=== PATIENT | male | born 1955 | race Caucasian/White ===

== ENCOUNTER 2017-04-18 14:44 | Inpatient (IN) | payer OTHER ==
[~2017-04-18] VITALS: Ht 177.8 cm; Wt 110.5 kg
[2017-04-21] MEDS ORDERED: TRAM50TA PO (09:00)
[2017-04-21] MEDS ORDERED: FISH1000 PO (09:00)
[2017-04-21] MEDS ORDERED: ATOR20TA15 PO (09:00)
[2017-04-21] MEDS ORDERED: SERT-129 PO (09:00)
[2017-04-21] MEDS ORDERED: OMEP20TA PO (09:00)
[2017-04-21] MEDS ORDERED: MELO-1 PO (09:00)
[2017-04-21] MEDS ORDERED: BUPR150T5 PO (09:00)
[2017-04-29] MEDS ORDERED: GENTAMICIN SULFATE 80 MG/2 ML VIAL ONE (10:53)
[2017-04-29] MEDS ORDERED: SODIUM CHLORIDE 0.9% IV SCH (11:00)
[2017-04-29] MEDS ORDERED: TRANEXAMIC ACID IV SCH (11:00)
[2017-04-29] MEDS ORDERED: CHLORHEXIDINE GLUCONATE 2 % 1 PACK (2 CLOTHS) TOPICAL PRN (11:15)
[2017-04-29] MEDS ORDERED: METOPROLOL TARTRATE 25 MG TAB PO PRN (11:15)
[2017-04-29] MEDS ORDERED: SODIUM CHLORID 0.9% 500 ML IV PRN (11:15)
[2017-04-29] MEDS ORDERED: POVIDONE IODINE 5% (ANTISEPSIS KIT) 4 APPLICATIONS EACH NARE PRN (11:15)
[2017-04-29] MEDS ORDERED: POVIDONE IODINE 7.5% SCRUB 118 ML BOTTLE TOPICAL SCH (11:15)
[2017-04-29] MEDS ORDERED: ceFAZolin 2 GM PREMIX 50 ML IV SCH (11:15)
[2017-04-29] MEDS ORDERED: LACTATED RINGER'S 1000 ML IV PRN (11:15)
[2017-04-29] MEDS ORDERED: INSULIN HUMAN REGULAR 1,000 UNITS/10 ML VIAL SQ PRN (11:15)
[2017-04-29] MEDS ORDERED: VANCOMYCIN 1000 MG/NS 250 ML (for <70 kg) IV SCH ×2 (11:15)
[2017-04-29] MEDS ORDERED: EXPAREL PERI-ARTICULAR INJECTION (TOTAL VOL. 60 ML) P-ARTICULR SCH ×2 (11:15)
[2017-04-29] MEDS ORDERED: ACETAMINOPHEN 1000 MG/100 ML 100 ML IV ONE (12:59)
[2017-04-29] MEDS ORDERED: FAMOTIDINE 20 MG/2 ML VIAL ONE (13:00)
[2017-04-29] MEDS ORDERED: LACTATED RINGER'S 1000 ML INJ 2,000 ML IV ONE (13:01)
[2017-04-29] MEDS ORDERED: ONDANSETRON HCL 4 MG/2 ML VIAL IV PUSH ONE (13:01)
[2017-04-29] MEDS ORDERED: PHENYLEPH/NS 1000 MCG/10 ML SYR IV ONE (13:01)
[2017-04-29] MEDS ORDERED: ePHEDrine/NS 25 MG/5 ML SYR IV ONE (13:01)
[2017-04-29] MEDS ORDERED: NEOSTIGMINE 3 MG/3 ML SYR IV ONE (13:01)
[2017-04-29] MEDS ORDERED: PROPOFOL 200 MG/20 ML AMP IV ONE (13:01)
[2017-04-29] MEDS ORDERED: HYDROmorphone HCL PF 2 MG/ML VIAL ONE (13:09)
[2017-04-29] MEDS ORDERED: MIDAZOLAM HCL 2 MG/2 ML VIAL ONE (13:12)
[2017-04-29] MEDS: LACTATED RINGER'S 1000 ML INJ 1,000 ML IV SCH ×2 (15:56→17:00)
[2017-04-29] MEDS ORDERED: ACETAMINOPHEN/HYDROcodone 325 MG/7.5 MG TAB PO PRN (16:00)
[2017-04-29] MEDS ORDERED: NALOXONE HCL 0.4 MG/ML AMP IV PRN (16:00)
[2017-04-29] MEDS ORDERED: SODIUM CHLORIDE 0.9% FLUSH 5 ML FLUSH IVF PRN (16:00)
[2017-04-29] MEDS ORDERED: TRANEXAMIC ACID INJ 1,100 MG in SODIUM CHLORIDE 0.9% INJ 100 ML IV SCH (16:00)
[2017-04-29] MEDS ORDERED: MISCELLANEOUS PHARMACY INFORMATION XX ONE (16:00)
[2017-04-29] MEDS: RIVAROXABAN 10 MG TAB PO SCH (16:00)
[2017-04-29] MEDS ORDERED: MISCELLANEOUS NURSING INFORMATION XX PRN (16:00)
[2017-04-29] MEDS ORDERED: MORPHINE SULFATE 8 MG/ML INJ IM PRN (16:00)
[2017-04-29] MEDS ORDERED: MORPHINE SULFATE 30 MG/30 ML PCA IV SCH (16:00)
[2017-04-29] MEDS ORDERED: Post-op Orders (for Pharmacy) MISC XX ONE (16:00)
--- NOTE | 2017-04-29 16:00 | PD.OP ---
cc: Jose Antonio Soto MD Operative Report Date of Surgery: Apr 29, 2017 Preoperative Diagnosis: Osteoarthritis right hip, severe Postoperative Diagnosis: Same Procedure: Right total hip replacement arthroplasty, direct anterior exposure Anesthesia: Gen. Surgeon: Jose Antonio Soto Product Marketing Coordinator(s): ANDRAE Adan Operation and Findings: EBL: 550 cc INDICATION: This patient presents with significant hip pain related to severe osteoarthritis of the right hip. Despite extensive conservative care this patient continues to be painful and now presents for surgical treatment. NOTE: Maribel Adan PA-C was present for the entire surgical procedure as my preschool teacher's assistant. In my medical opinion her skill and care was necessary for the proper management of this patient. COMPONENTS: COMPANY: [employer] CUP: [place], 56 mm, 100 series, gription surface LINER: Altrx 36 mm, neutral STEM: [place], size 15, high offset, hydroxyapatite-coated HEAD: 36, +8.5, 12/14 taper PROCEDURE: This patient was brought to the operating room and anesthetized in the supine position and positioned on the fracture table with both legs held extended. The right hip and leg was scrubbed with alcohol followed by Hibiclens followed by ChloraPrep and draped sterilely. Antibiotics were given within routine time window and a timeout was done. A 4 inch incision was made starting 2 cm distal and 2 cm lateral to the anterior superior iliac spine. The fascia kezia was opened longitudinally. The interval between the fascia kezia and the rectus was opened down to the capsule of the hip joint. Retractors were positioned allowing good visualization of the capsule. This was opened longitudinally and flaps were created. Stay sutures were utilized. Exposure was excellent. The neck was cut at the proper location using fluoroscopy as a guide. The head was removed. Deep retractors were positioned allowing good visualization of the acetabulum. Acetabulum was deepened down to the floor starting with a proper size reamer and reaming up to 55 mm. A trial was utilized. Fluoroscopy was used to check position and confirmed satisfactory alignment. The rim was reamed with a 66 mm reamer and the final cup was positioned in approximately 20 of anteversion and 40-45 of abduction. Position was satisfactory. A single hole eliminator was positioned followed by the final liner. The lifting hook was utilized. The leg was dropped to the floor, maximally externally rotated and brought across the midline. Retractors were positioned. A box osteotome was utilized followed by progressive broaching to the proper stem size. Trial reduction showed excellent alignment and fit. With 60 of external rotation the leg was dropped to the floor without evidence of anterior subluxation. The wound was irrigated. The final stem was inserted and was found to be very stable. The final reduction using the final head. Stability was as previously noted. Intraoperative x-rays were taken. The wound was irrigated copiously. Hemostasis was controlled. Local anesthesia was utilized. The capsule was repaired with #2 Tycron sutures. The fascia kezia was repaired with running 0 PDS on a loop. Subcutaneous tissue was approximated with 2-0 Vicryl and skin with running intradermal 3-0 Vicryl followed by Steri-Strips. A sterile dressing was applied. The patient was awakened and taken to the recovery room in satisfactory condition. FINDINGS: There was severe osteoarthritis with large circumferential periacetabular osteophytes which were removed. The final solution appeared be very excellent. We intentionally lengthened the side approximately 3-4 mm. Jose Antonio Soto MD Apr 29, 2017 16:00
[2017-04-29] MEDS ORDERED: HYDR-3580 PO (16:03)
[2017-04-29] MEDS ORDERED: XARE10TA PO (16:03)
--- NOTE | 2017-04-29 16:10 | RADRPT ---
EXAM DATE/TIME: 04/29/2017 13:47 [facility] COMPARISON: No previous studies available for comparison. INDICATIONS : Right anterior total hip replacement in the operating room. MEDICAL HISTORY : Non-responsive SURGICAL HISTORY : Non-responsive ENCOUNTER: Initial ACUITY: 1 day PAIN SCORE: Non-responsive. LOCATION: Right pelvis FINDINGS: 3 spot intraoperative fluoroscopic views of the right hip demonstrate a right total hip arthroplasty. Subcutaneous air and skin joanna are noted. CONCLUSION: Postoperative changes. Israel Escalante MD on April 29, 2017 at 16:08 Board Certified Radiologist. This report was verified electronically.
[2017-04-29] MEDS ORDERED: fentaNYL CITRATE 250 MCG/5 ML AMP ONE (16:32)
[2017-04-29] MEDS ORDERED: *morphine SULFATE 8 MG/ML PERIprocedure ONLY ONE (16:56)
[2017-04-29] MEDS ORDERED: DO NOT ADM ANY ANTICOAGULANT DRUGS PRN (17:00)
[2017-04-29 18:06] VITALS: BP 152/83; PULSE 76; RESP 18; TEMP 97.6; O2SAT 97
[2017-04-29] MEDS ORDERED: ERYTHROMYCIN 0.5% OPTH OINT 1 GM TUBO ONE (18:41)
[2017-04-29] MEDS ORDERED: ERYTHROMYCIN 0.5% OPTH OINT 3.5 GM TUBO RIGHT EYE ONE (20:00)
[2017-04-29] MEDS ORDERED: TETRACAINE 0.5% OPTH SOLN 4 ML BTL RIGHT EYE ONE (20:00)
[2017-04-29] MEDS: SODIUM CHLORIDE 0.9% FLUSH 5 ML FLUSH IVF SCH (20:53)
[2017-04-29] MEDS: buPROPion HCL 150 MG SUSTAINED RELEASE TAB PO SCH (20:54)
[2017-04-29] MEDS: MAGNESIUM HYDROXIDE SUSP 30 ML CUP PO SCH (20:54)
[2017-04-29] MEDS ORDERED: ATORVASTATIN 20 MG TAB PO SCH (21:00)
[2017-04-29] MEDS ORDERED: SENNOSIDES 8.6 MG TAB PO SCH (21:00)
[2017-04-29] MEDS ORDERED: SERTRALINE HCL 100 MG TAB PO SCH (21:00)
[2017-04-29 21:25] VITALS: BP 174/97; PULSE 96; RESP 16; TEMP 97.7; O2SAT 94
[2017-04-29] MEDS: PCA - TOTAL MG MORPHINE DELIVERED PER SHIFT SCH (22:00)
[2017-04-30 00:55] VITALS: BP 141/92; PULSE 92; RESP 17; TEMP 98.6; O2SAT 93
[2017-04-30] MEDS: ACETAMINOPHEN/HYDROcodone 325 MG/7.5 MG TAB PO PRN ×3 (01:28→15:57)
[2017-04-30 04:45] VITALS: BP 129/65; PULSE 89; RESP 17; TEMP 99.2; O2SAT 94
[2017-04-30] MEDS: PCA - TOTAL MG MORPHINE DELIVERED PER SHIFT SCH (05:46)
[2017-04-30 08:00] VITALS: BP 127/71; PULSE 86; RESP 18; TEMP 98.1; O2SAT 94
[2017-04-30 08:12] LABS: HEMATOCRIT 34.7 % (39.0-51.0); REVIEW FLAG FINAL
[2017-04-30] MEDS: SODIUM CHLORIDE 0.9% FLUSH 5 ML FLUSH IVF SCH (08:31)
[2017-04-30] MEDS: buPROPion HCL 150 MG SUSTAINED RELEASE TAB PO SCH (08:31)
[2017-04-30] MEDS: MAGNESIUM HYDROXIDE SUSP 30 ML CUP PO SCH (08:31)
--- NOTE | 2017-04-30 08:32 | HHI.DCPOC ---
Discharge Care Plan Diagnosis: (1) Osteoarthritis of right hip Your Health Problems Are: Incision/Drains Swelling Goals to Promote Your Health * To prevent worsening of your condition and complications * To maintain your health at the optimal level Directions to Meet Your Goals Take your medications as prescribed Follow your dietary instruction Follow activity as directed Keep your appointments as scheduled Take your immunizations and boosters as scheduled If your symptoms worsen call your PCP, if no PCP go to Urgent Care Center or Emergency Room Smoking is Dangerous to Your Health. Avoid second hand smoke Call the 24-hour hour crisis hotline for domestic abuse at [facility] Apr 30, 2017 08:32
--- NOTE | 2017-04-30 08:33 | HHI.FF ---
Face to Face Verification Diagnosis: (1) Osteoarthritis of right hip Physical Therapy Gait training, Safety evaluation, Transfer training, bed to chair Hip: Total hip, Protocol: Right, Progress to weight bearing Right LE Weight Bearing: WB as tolerated Additional Instructions PT 4 days/wk for 2 weeks. Anterior MCKENNA protocol. WBAT R LE. Gait training. LE strengthening. Nursing RN Days per Week: 2 x Week(s): 1 Dressing Changes: Do not change dressing Additional Instructions Vitals assessment. Dressing assessment - do not change unless saturated. I have seen patient Brooks Nguyễn on 04/30/17. My clinical findings support the need for the requested home health care services because: Limited ability to care for self High risk of falls I certify that my clinical findings support that this patient is homebound because: Post-op weakness Unsteady gait/balance [facility] [place] Apr 30, 2017 08:33
--- NOTE | 2017-04-30 08:34 | HHI.DS ---
Discharge Summary Admission Date Apr 29, 2017 at 10:42 Discharge Date: Apr 30, 2017 Admitting Diagnosis see below Diagnosis: (1) Osteoarthritis of right hip Diagnosis: Principal ICD Codes: M16.11 - Unilateral primary osteoarthritis, right hip Procedures Right total hip arthroplasty, direct anterior approach Brief History This is a 62 year old male patient with a 1-2 year history of right hip pain. He sought out treatment with his [place] physician. Imaging studies showed moderate to severe OA of the right hip. He attempted conservative measures including use of ice, heat, biofreeze and meloxicam. He attempted to change his activities. He continued to decline and began to develop a limp. Surgical treatment was eventually recommended in the form of right total hip arthroplasty , direct anterior approach. He agreed and present today for the above procedure. CBC/BMP: 04/30/17 0610 Significant Findings Laboratory Tests Test 04/30/17 06:10 Hemoglobin 11.1 GM/DL (13.0-17.0) Hematocrit 34.7 % (39.0-51.0) Hospital Course Surgical treatment was performed on the day of admission without complication. He recovered well in PACU and was transferred to the orthopaedic floor. Pain was controlled with IV and oral medications. DVT prophylaxis was initiated in the form of xarelto. He was compliant with physical therapy and all restrictions. After 1 day he was found to be stable and discharged home with home health care with instruction to continue his xarelto for 25 days, to continue his PT and to pursue a high fiber diet for 3-5 days. Pt Condition on Discharge: Stable Discharge Disposition: Disch w/ Home Health Serv Discharge Instructions Diet Instructions: As Tolerated, No Restrictions, High Fiber Diet Activities You Can Perform: Weight Bearing as Anneliese Activities to Avoid: Strenuous Activity Additional Activity Instruc.: Anterior MCKENNA protocol New Medications: Hydrocodone-Acetaminophen (Hydrocodone-Acetaminophen) 7.5-325 mg Tab 1 TAB PO Q4H PRN for pain, #50 TAB Rivaroxaban (Xarelto) 10 Mg Tab 10 MG PO Q24H for Prevent Blood Clot, #25 TAB Continued Medications: Atorvastatin (Atorvastatin) 20 Mg Tab 20 MG PO HS for Cholesterol Management, #30 TAB 0 Refills Bupropion HCl ER 12 HR (Bupropion HCl ER 12 HR) 150 Mg Tab 150 MG PO BID for Depression Control, #60 TAB [place]-3 Fatty Acids (Fish Oil) 1,000 Mg Cap 3 CAP PO DAILY for Nutritional Supplement Omeprazole (Omeprazole) 20 Mg Tab 20 MG PO DAILY for Heartburn Management, #30 TAB 0 Refills Sertraline (Sertraline) 100 Mg Tab 100 MG PO HS for Depression Control, #30 TAB 0 Refills Tramadol (Tramadol) 50 Mg Tab 50 MG PO Q6H PRN for PAIN, TAB 0 Refills Discontinued Medications: Meloxicam (Meloxicam) 15 Mg Tab 15 MG PO DAILY for Arthritis Pain, #30 TAB 0 Refills [facility] [place] Apr 30, 2017 08:34
[2017-04-30] MEDS ORDERED: WALKER WHEELS/F1 MIS (08:35)
[2017-04-30] MEDS ORDERED: ADJUSTABLE COMM1 MIS (08:36)
[2017-04-30] MEDS ORDERED: PANTOPRAZOLE SOD 20 MG DELAYED RELEASE TAB PO SCH (09:00)
[2017-04-30 09:58] VITALS: O2SAT 95
[2017-04-30 12:00] VITALS: BP 135/78; PULSE 79; RESP 18; TEMP 99.6; O2SAT 93
--- NOTE | 2017-04-30 13:25 | PD.ORT.PN ---
Subjective Subjective Remarks He is doing well in regards to his right hip. He states his pain is well controlled. He was struggling with right eye pain last night. The nurses gave him eye drops and covered the eye. It is much better this morning. He denies any new radiating leg pain. No new CP or SOB. Objective Vitals Vital Signs Date Time Temp Pulse Resp B/P (MAP) Pulse Ox O2 Delivery O2 Flow Rate FiO2 04/30/17 12:00 99.6 79 18 135/78 (97) 93 04/30/17 11:42 18 04/30/17 09:58 95 04/30/17 08:00 98.1 86 18 127/71 (89) 94 04/30/17 05:46 18 04/30/17 05:33 21 04/30/17 04:45 99.2 89 17 129/65 (86) 94 04/30/17 00:55 98.6 92 17 141/92 (108) 93 04/29/17 22:00 17 04/29/17 21:25 97.7 96 16 174/97 (122) 94 04/29/17 18:06 97.6 76 18 152/83 (106) 97 04/29/17 17:45 98.8 73 15 145/65 (91) 96 Nasal Cannula 2 04/29/17 17:30 73 16 157/90 (112) 96 Nasal Cannula 2 04/29/17 17:15 75 16 149/87 (107) 96 Nasal Cannula 2 04/29/17 17:00 76 17 164/94 (117) 96 Nasal Cannula 2 04/29/17 16:45 73 15 164/90 (114) 95 Nasal Cannula 2 04/29/17 16:27 97.8 65 15 154/85 (108) 94 Nasal Cannula 2 I/O 04/29/17 04/29/17 04/29/17 04/30/17 04/30/17 04/30/17 07:00 15:00 23:00 07:00 15:00 23:00 Intake Total 351 ml 480 ml Output Total 300 ml Balance 351 ml 180 ml Intake Oral 240 ml 480 ml IV Total 111 ml Output Urine Total 300 ml # Voids 1 1 # Bowel Movements 0 0 Result Diagram: 04/30/17 0610 Procedures Right total hip arthroplasty, direct anterior approach Objective Remarks Sitting up in bed Eating lunch at bedside VSS RLE Dressing c/d/i, no drainage, mild swelling and warmth, no erythema +motor at, +sens, +nvi neg homans bilat Assessment & Plan Ortho Post Op Day #: 1 Problem List: (1) Osteoarthritis of right hip ICD Codes: M16.11 - Unilateral primary osteoarthritis, right hip Qualifiers: Qualified Codes: M16.11 - Unilateral primary osteoarthritis, right hip Assessment and Plan pod#1 s/p R MCKENNA, direct anterior approach 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 Continue xarelto 10mg qd for 25 days. PT - WBAT RLE. Anterior mckenna precautions. Walker as needed. Hold dressing changes unless saturated. F/U in 2 weeks as scheduled. DME written. [facility] [place] Apr 30, 2017 13:25
[2017-04-30] MEDS: RIVAROXABAN 10 MG TAB PO SCH (15:57)
== END 2017-04-30 16:22 | disposition home health service (06) | DRG 470 ==
LOC: HSDI 04-29 10:42 → N06A 04-29 17:59
PROVIDERS: ADMIT Orthopaedic Surgery Orthopaedic Surgery of the Spine; ATTEND Orthopaedic Surgery Orthopaedic Surgery of the Spine
PROC: 0SR904A Replacement of Right Hip Joint with Ceramic on Polyethylene Synthetic Substitute, Uncemented, Open Approach (ICD-10-PCS; principal; 2017-04-29 13:14)
DX: M16.11 Unilateral primary osteoarthritis, right hip (principal); F32.9 Major depressive disorder, single episode, unspecified; E78.5 Hyperlipidemia, unspecified; M25.751 Osteophyte, right hip; Z87.891 Personal history of nicotine dependence; M51.26 Other intervertebral disc displacement, lumbar region; K21.9 Gastro-esophageal reflux disease without esophagitis; F43.10 Post-traumatic stress disorder, unspecified; H57.11 Ocular pain, right eye
CPT/HCPCS: 73502; 76000; 85014; 85018; 86850; 86900; 86901; 86920; 94150; C1776; C9290; J0131; J0690; J1170; J1580; J2250; J2270; J2370; J2405; J2710; J3010; J7120

== ENCOUNTER → 2017-04-21 | Outpatient (CLI) | payer OTHER ==
[~2017-04-21] MED LIST: ADJUSTABLE COMM1 MIS; ATOR20TA15 PO; BUPR-197 PO; BUPR150T5 PO; FISH1000 PO; HYDR-3580 PO; MELO-1 PO; MOBI15TA PO; OMEP20TA PO; SERT-129 PO; SERT100 PO; TRAM50TA PO; WALKER WHEELS/F1 MIS; XARE10TA PO
== END ==
LOC: CPRE 08:35
PROVIDERS: ATTEND Orthopaedic Surgery Orthopaedic Surgery of the Spine
DX: Z01.810 Encounter for preprocedural cardiovascular examination (principal); Z01.812 Encounter for preprocedural laboratory examination; M16.11 Unilateral primary osteoarthritis, right hip

== ENCOUNTER 2017-10-27 12:26 | Emergency (ER) | payer MEDICARE, OTHER ==
[~2017-10-27 12:26] MED LIST changes: -BUPR-197 PO; -MELO-1 PO; -MOBI15TA PO; -OMEP20TA PO; +OMEP20TA93 PO; -SERT100 PO
[2017-10-27 12:43] VITALS: BP 194/93; PULSE 73; RESP 20; TEMP 98.1; O2SAT 96
[2017-10-27] MEDS ORDERED: ORPHENADRINE CITRATE 100 MG SUSTAINED RELEASE TAB PO ONE (13:30)
[2017-10-27] MEDS ORDERED: DEXAMETHASONE SOD PHOS 20 MG/5 ML VIAL IM ONE (13:30)
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
[2017-10-27] MEDS ORDERED: MEDR4PAK PO (14:50)
[2017-10-27] MEDS ORDERED: ORPH100T2 PO (14:50)
== END 2017-10-27 14:57 | disposition home or self-care (01) ==
LOC: PHED 12:26 → PHEFT 14:57
DX: M54.2 Cervicalgia (principal); F41.9 Anxiety disorder, unspecified; F32.9 Major depressive disorder, single episode, unspecified; F43.10 Post-traumatic stress disorder, unspecified; K21.9 Gastro-esophageal reflux disease without esophagitis; G89.29 Other chronic pain; M54.9 Dorsalgia, unspecified; M19.90 Unspecified osteoarthritis, unspecified site
CPT/HCPCS: 96372; 99283; J1100